=== PATIENT | female | born 1950 | race Caucasian/White ===

== ENCOUNTER 2018-10-26 12:35 | Inpatient (IN) | payer BC ==
[~2018-10-26] VITALS: Ht 167.6 cm; Wt 68.0 kg
[2018-10-26 12:35] VITALS: BP_SYST 124
[2018-10-26 13:37] LABS: BASOPHILS % (AUTO) 0.2 % (0.0-2.0); MEAN CORPUSCULAR HEMOGLOBIN 31 pg (27-31); MONOCYTES # (AUTO) 0.8 K/uL (0.0-1.0); RED CELL DISTRIBUTION WIDTH 14.2 % (9.0-15.0)
[2018-10-26 13:43] LABS: CALCIUM 7.9 mg/dL (8.4-11.0); CREATININE 1.41 mg/dL (0.55-1.30); POTASSIUM 3.5 mmol/L (3.5-5.1)
[2018-10-26 13:49] LABS: ALBUMIN 2.3 g/dL (3.4-4.8); TOTAL BILIRUBIN 0.5 mg/dL (0.0-1.0)
[2018-10-26 13:53] LABS: HEMATOCRIT 38.4 % (36-48); HEMOGLOBIN 12.3 g/dL (12.0-16.0); LYMPHOCYTES # (AUTO) 1.3 K/uL (1.0-5.5); LYMPHOCYTES % (AUTO) 13.8 % (20.5-51.5); MEAN CORPUSCULAR HGB CONC 32 % (32-36); MEAN CORPUSCULAR VOLUME 98 fL (79.0-98.0); MONOCYTES % (AUTO) 8.5 % (1.7-9.3); NEUTROPHILS # (AUTO) 7.6 K/uL (1.8-7.7); NEUTROPHILS % (AUTO) 77.5 % (40.0-70.0); RED BLOOD CELL COUNT(AUTO) 3.92 MIL/uL (4.2-6.2); WHITE BLOOD COUNT (AUTO) 9.8 K/uL (4.8-10.8)
[2018-10-26 13:55] LABS: PLATELET COUNT (AUTO) 764 K/uL (130-430)
[2018-10-26 13:57] LABS: INR 1.6 (0.8-1.2)
[2018-10-26 13:58] LABS: PROTHROMBIN TIME 16.4 SECS (9.5-12.5)
[2018-10-26] MEDS ORDERED: MORPHINE 4 MG/ML INJ. SYRINGE IVP ONE (15:45)
[2018-10-26] MEDS ORDERED: NACL 0.9% 1,000 ML IV ONE ×2 (15:45→16:00)
[2018-10-26] MEDS ORDERED: ONDANSETRON HCL 4 MG/2 ML VIAL IVP ONE (15:45)
[2018-10-26 16:14] LABS: ACETONE, SERUM NEGATIVE (NEGATIVE)
[2018-10-26] MEDS ORDERED: ONDANSETRON HCL 4 MG/2 ML VIAL IVP SCH (17:15)
[2018-10-26 17:35] LABS: BLOOD, URINE NEGATIVE (NEGATIVE); CLARITY/URINE CLEAR (CLEAR); GLUCOSE,URINE NEGATIVE (NEGATIVE); KETONES,URINE 3+ (NEGATIVE); LEUKOCYTE ESTERASE ,URINE NEGATIVE (NEGATIVE); NITRITE, URINE NEGATIVE (NEGATIVE); PH,URINE 5.5 (5.0-8.0); PROTEIN URINE 1+ (NEGATIVE)
[2018-10-26 17:42] LABS: BILIRUBIN,URINE NEGATIVE (NEGATIVE); COLOR,URINE AMBER (YELLOW)
[2018-10-26 17:43] LABS: BACTERIA,URINE FEW /HPF (None Seen); RBC,URINE 0-3 /HPF (0-3); WBC,URINE 0-3 /HPF (0-3)
[2018-10-26 17:44] LABS: MUCUS,URINE None Seen /LPF (None Seen)
[2018-10-26] MEDS ORDERED: LEVOFLOXACIN 500 MG/D5W 100 ML IV SCH (18:45)
[2018-10-26] MEDS ORDERED: DICY10CA13 PO (19:32)
[2018-10-26] MEDS ORDERED: METO25TA3 PO (19:32)
[2018-10-26] MEDS ORDERED: ALEN70TA3 PO (19:32)
[2018-10-26] MEDS ORDERED: BUDE3CAP8 PO (19:32)
[2018-10-26] MEDS: KCL 20 mEq in D5/0.45NS 1000mL 1,000 ML IV SCH (19:42)
[2018-10-26 20:50] VITALS: BP_SYST 102
[2018-10-26 21:00] VITALS: BP_SYST 125
[2018-10-26] MEDS: HYDROmorphone 1 MG INJ. 1 MG/ML AMPUL IVP SCH (21:09)
[2018-10-26 22:00] VITALS: BP_SYST 121
[2018-10-26] MEDS ORDERED: metroNIDAZOLE 500 mg/NS 200 ML IV ONE (22:47)
[2018-10-26 23:00] VITALS: BP_SYST 90
[2018-10-26] MEDS: metroNIDAZOLE 500 mg/NS 100 ML IV SCH (23:02)
[2018-10-27] VITALS (21 sets, daily range): BP systolic 85–130
[2018-10-27] MEDS: NOREPINEPHRINE BITARTRATE 4 MG in D5W 246 ML IV PRN ×2 (01:17→08:20)
[2018-10-27] MEDS ORDERED: NOREPINEPHRINE 4 MG/4 ML VIAL IV ONE ×4 (01:20→16:37)
[2018-10-27] MEDS ORDERED: KCL 20 mEq in D5/0.45NS 1000mL 1,000 ML IV ONE (01:45)
[2018-10-27] MEDS: KCL 20 mEq in D5/0.45NS 1000mL 1,000 ML IV SCH (01:56)
[2018-10-27] MEDS: HYDROmorphone 1 MG INJ. 1 MG/ML AMPUL IVP SCH (02:57)
[2018-10-27] MEDS: metroNIDAZOLE 500 mg/NS 100 ML IV SCH (05:06)
[2018-10-27] MEDS ORDERED: PANTOPRAZOLE SODIUM 40 MG/VIAL (PROTONIX) IVP SCH (09:00)
[2018-10-27] MEDS ORDERED: metroNIDAZOLE 500 mg/NS 100 ML IV ONE (10:00)
[2018-10-27] MEDS ORDERED: PIPERACILLIN/TAZO 4.5GM/DEX-IS 100 ML IV SCH (10:00)
[2018-10-27] MEDS ORDERED: EPINEPHrine JECT 2 MG in NS 230 ML IV PRN ×2 (10:30→11:15)
[2018-10-27] MEDS ORDERED: SODIUM BICARBONATE 8.4% JECT 50 MEQ/50 ML SYRINGE ONE ×2 (10:49→11:36)
[2018-10-27] MEDS ORDERED: NACL 0.9% 1,000 ML IV ONE ×3 (10:49→12:00)
[2018-10-27] MEDS ORDERED: HYDROCORTISONE SOD SUCC 100 MG/2 ML VIAL IVP ONE (11:00)
[2018-10-27] MEDS ORDERED: 0.45% NACL 1,000 ML IV SCH (11:02)
[2018-10-27] MEDS ORDERED: PHENYLEPHRINE HCL 30 MG in NS 247 ML IV PRN (11:15)
[2018-10-27] MEDS ORDERED: PHENYLEPHRINE HCL 10 MG/ML VIAL (NEOSYNEPHRINE) ONE (11:26)
[2018-10-27 11:44] LABS: BASOPHILS % (AUTO) 0.2 % (0.0-2.0); EOSINOPHILS % (AUTO) 0.3 % (0.0-4.0); LYMPHOCYTES # (AUTO) 0.4 K/uL (1.0-5.5); LYMPHOCYTES % (AUTO) 4.4 % (20.5-51.5); MEAN CORPUSCULAR HEMOGLOBIN 32 pg (27-31); MEAN CORPUSCULAR HGB CONC 32 % (32-36); MEAN CORPUSCULAR VOLUME 100 fL (79.0-98.0); MONOCYTES # (AUTO) 0.4 K/uL (0.0-1.0); MONOCYTES % (AUTO) 4.9 % (1.7-9.3); NEUTROPHILS # (AUTO) 7.6 K/uL (1.8-7.7); NEUTROPHILS % (AUTO) 90.2 % (40.0-70.0); PLATELET COUNT (AUTO) 201 K/uL (130-430); RED CELL DISTRIBUTION WIDTH 14.6 % (9.0-15.0); WHITE BLOOD COUNT (AUTO) 8.4 K/uL (4.8-10.8)
[2018-10-27 11:51] LABS: HEMOGLOBIN 6.5 g/dL (12.0-16.0)
[2018-10-27] MEDS ORDERED: ALBUMIN HUMAN 25% 50 ML IV SCH (12:00)
[2018-10-27] MEDS ORDERED: CALCIUM CHLORIDE 1 GM/10 ML DISP.SYRIN (14 mEq Ca++/SYR) IVP ONE (12:13)
[2018-10-27] MEDS ORDERED: SODIUM BICARBONATE 8.4% JECT 50 MEQ/50 ML SYRINGE IVP ONE ×2 (12:13→17:30)
[2018-10-27] MEDS ORDERED: EPINEPHrine JECT 1 MG/10 ML SYR IVP ONE ×2 (12:13→17:30)
[2018-10-27 12:21] LABS: ALANINE AMINOTRANSFERASE 31 U/L (12-78); ANION GAP 12 (5-15); ASPARTATE AMINOTRANSFERASE 101 U/L (10-37); CREATININE 0.95 mg/dL (0.55-1.30); GLUCOSE 64 mg/dL (70-99); SODIUM SERUM 150 mmol/L (136-145); TOTAL BILIRUBIN 0.2 mg/dL (0.0-1.0); UREA NITROGEN, BLOOD 27 mg/dL (8-21)
[2018-10-27] MEDS ORDERED: SODIUM BICARBONATE 8.4% VIAL 100 MEQ in 0.45% NACL 1,000 ML IV SCH (12:23)
[2018-10-27 12:44] LABS: GFR AFRICAN AMERICAN 75 mL/min (>90)
[2018-10-27 12:54] LABS: CHLORIDE 124 mmol/L (98-107)
[2018-10-27 12:55] LABS: CALCIUM < 5.0 mg/dL (8.4-11.0)
[2018-10-27 12:56] LABS: ALBUMIN < 0.6 g/dL (3.4-4.8)
[2018-10-27] MEDS ORDERED: VANCOMYCIN HCL 1,000 MG in NS 250 ML IV SCH (13:00)
[2018-10-27 13:01] LABS: CKMB RELATIVE INDEX 5.6 (0.0-2.9); CREATINE KINASE MB 85.8 ng/mL (0-3.6)
[2018-10-27] MEDS ORDERED: metroNIDAZOLE 500 mg/NS 100 ML IV SCH (14:00)
[2018-10-27] MEDS ORDERED: methylPREDNISolone SOD SUCC/PF 62.5 MG/ML VIAL IVP SCH (14:00)
[2018-10-27] MEDS ORDERED: HYDROCORTISONE SOD SUCC 100 MG/2 ML VIAL IVP SCH (14:00)
[2018-10-27 14:15] LABS: BASOPHILS % (AUTO) 0.1 % (0.0-2.0); EOSINOPHILS % (AUTO) 0.1 % (0.0-4.0); HEMATOCRIT 31.5 % (36-48); HEMOGLOBIN 10.3 g/dL (12.0-16.0); LYMPHOCYTES # (AUTO) 0.7 K/uL (1.0-5.5); LYMPHOCYTES % (AUTO) 6.4 % (20.5-51.5); MEAN CORPUSCULAR HEMOGLOBIN 32 pg (27-31); MEAN CORPUSCULAR HGB CONC 33 % (32-36); MEAN CORPUSCULAR VOLUME 97 fL (79.0-98.0); MONOCYTES # (AUTO) 0.1 K/uL (0.0-1.0); MONOCYTES % (AUTO) 1.4 % (1.7-9.3); NEUTROPHILS # (AUTO) 9.8 K/uL (1.8-7.7); PLATELET COUNT (AUTO) 256 K/uL (130-430); RED BLOOD CELL COUNT(AUTO) 3.23 MIL/uL (4.2-6.2); RED CELL DISTRIBUTION WIDTH 14.2 % (9.0-15.0); WHITE BLOOD COUNT (AUTO) 10.6 K/uL (4.8-10.8)
[2018-10-27] MEDS ORDERED: MICAFUNGIN SODIUM 100 MG in NS 100 ML IV SCH (14:45)
[2018-10-27 14:56] LABS: CREATININE 1.56 mg/dL (0.55-1.30); POTASSIUM 5.4 mmol/L (3.5-5.1)
[2018-10-27 15:05] LABS: CALCIUM 6.4 mg/dL (8.4-11.0)
[2018-10-27 15:16] LABS: PROTHROMBIN TIME 31.3 SECS (9.5-12.5)
[2018-10-27 15:17] LABS: INR 3.2 (0.8-1.2)
[2018-10-27 15:56] LABS: FIBRINOGEN 117 mg/dL (200-400)
[2018-10-27] MEDS ORDERED: EPINEPHrine 1 MG/ML AMP ONE (16:49)
[2018-10-27] MEDS ORDERED: CALCIUM CHLORIDE 1 GM/10 ML DISP.SYRIN (14 mEq Ca++/SYR) IV ONE (17:30)
== END 2018-10-27 20:11 | disposition expired | DRG 871 ==
LOC: SED 12:35 → SIC 17:07
PROVIDERS: ADMIT Family Medicine; ATTEND Family Medicine
PROC: 5A1935Z Respiratory Ventilation, Less than 24 Consecutive Hours (ICD-10-PCS; 2018-10-26)
PROC: 02HV33Z Insertion of Infusion Device into Superior Vena Cava, Percutaneous Approach (ICD-10-PCS; principal; 2018-10-27)
PROC: B548ZZA Ultrasonography of Superior Vena Cava, Guidance (ICD-10-PCS; 2018-10-27)
PROC: 0BH17EZ Insertion of Endotracheal Airway into Trachea, Via Natural or Artificial Opening (ICD-10-PCS; 2018-10-27)
PROC: 5A12012 Performance of Cardiac Output, Single, Manual (ICD-10-PCS; 2018-10-27)
PROC: 3E0A3GC Introduction of Other Therapeutic Substance into Bone Marrow, Percutaneous Approach (ICD-10-PCS; 2018-10-27)
DX: A41.9 Sepsis, unspecified organism (principal); E43 Unspecified severe protein-calorie malnutrition; R65.21 Severe sepsis with septic shock; J96.00 Acute respiratory failure, unspecified whether with hypoxia or hypercapnia; G93.1 Anoxic brain damage, not elsewhere classified; K50.90 Crohn's disease, unspecified, without complications; N17.9 Acute kidney failure, unspecified; G93.40 Encephalopathy, unspecified; K56.609 Unspecified intestinal obstruction, unspecified as to partial versus complete obstruction; E66.9 Obesity, unspecified; I46.9 Cardiac arrest, cause unspecified; K59.09 Other constipation; E86.0 Dehydration; I10 Essential (primary) hypertension; Z90.49 Acquired absence of other specified parts of digestive tract; Z68.24 Body mass index [BMI] 24.0-24.9, adult; Z91.040 Latex allergy status
CPT/HCPCS: 36415; 36600; 71045; 74018; 80048; 80053; 81000-TC; 82009-TC; 82150-TC; 82550-TC; 82553-TC; 82803-TC; 82962; 83605; 83690-TC; 84484; 85025; 85379; 85384-TC; 85610-TC; 85730-TC; 87040-TC; 87081; 87205-TC; 92950; 93005; 93306; 94002; 94640; 96361; 96365; 96367; 96375; 99285; C1751; C9113; J0171; J1170; J1720; J1956; J2248; J2270; J2370; J2405; J2543; J3370; J3490; J7030; J7050; J7060; P9046